=== PATIENT | female | born 1955 | race Caucasian/White ===

== ENCOUNTER 2023-04-28 14:11 | Emergency (ER) | payer OTHER, MEDICARE ==
[~2023-04-28] VITALS: Ht 165.1 cm; Wt 61.2 kg
[2023-04-28] MEDS ORDERED: ASPIRIN 325MG TAB PO ONE (14:30)
[2023-04-28] MEDS ORDERED: HYDROXYZINE 25 MG TABLET PO ONE (14:30)
[2023-04-28 14:40] LABS: BASOPHILS # (AUTO) 0.06 K/uL (0.00-0.20); BASOPHILS % (AUTO) 0.5 % (0.0-5.0); EOSINOPHILS # (AUTO) 0.37 K/uL (0.00-0.70); EOSINOPHILS % (AUTO) 3.1 % (0.0-8.0); HEMATOCRIT 37.7 % (36-48); IMMATURE GRANULOCYTE ABSOLUTE 0.05 K/uL (0-1); LYMPHOCYTES # (AUTO) 2.3 K/uL (1.0-4.8); LYMPHOCYTES % (AUTO) 18.6 % (21.0-51.0); MEAN CORPUSCULAR HEMOGLOBIN 31.1 pg (27.0-33.0); MEAN CORPUSCULAR HGB CONC 34.7 g/dL (32.0-36.0); MEAN CORPUSCULAR VOLUME 89.5 fL (79-99); NEUTROPHILS # (AUTO) 8.4 K/uL (1.8-7.7); NEUTROPHILS % (AUTO) 69.4 % (40.0-77.0); PLATELET COUNT (AUTO) 354 K/uL (130-400); RED BLOOD CELL COUNT(AUTO) 4.21 MIL/uL (4.00-5.50); WHITE BLOOD COUNT (AUTO) 12.1 K/uL (4.8-10.8)
[2023-04-28 14:55] LABS: INR <= 0.93 (0.85-1.15); PROTHROMBIN TIME 10.4 SEC (9.6-11.6)
[2023-04-28 14:56] LABS: PARTIAL THROMBOPLASTIN TIME 26.2 SEC (26.3-35.5)
[2023-04-28 14:58] LABS: CREATININE 1.1 mg/dL (0.5-1.5); POTASSIUM 3.9 mmol/L (3.5-5.1)
[2023-04-28 15:07] LABS: ALBUMIN 4.4 g/dL (3.5-5.0); BILIRUBIN,TOTAL 0.6 mg/dL (0.2-1.0); TOTAL PROTEIN, SERUM 7.7 g/dL (6.0-8.3)
[2023-04-28 15:09] LABS: B-TYPE NATRIURETIC PEPTIDE 109 pg/mL (0-100)
[2023-04-28] MEDS ORDERED: MELO-106 PO (16:14)
[2023-04-28] MEDS ORDERED: PREG25 PO (16:14)
[2023-04-28 16:43] VITALS: BP 152/69; PULSE 78; RESP 18; O2SAT 97
== END 2023-04-28 16:44 | disposition home or self-care (01) ==
LOC: EDH 14:11
DX: M47.9 Spondylosis, unspecified (principal); M54.12 Radiculopathy, cervical region; I10 Essential (primary) hypertension
CPT/HCPCS: 36415; 70450; 70551; 71045; 80053; 82550; 82948; 83721; 83880; 84484; 85025; 85610; 85730; 93005